=== PATIENT | female | born 1970 | race Caucasian/White ===

== ENCOUNTER 2016-12-07 08:26 | Emergency (ER) | payer OTHER ==
[~2016-12-07] VITALS: Ht 165.1 cm; Wt 104.3 kg
[2016-12-07] MEDS ORDERED: ASPIRIN 81 MG CHEW TABLET PO ONE (09:15)
--- NOTE | 2016-12-07 09:45 | REP ---
Clinical: Chest pain . Comparison: 04/06/2014 . Findings: The mediastinum and cardiac silhouette are stable and within normal limits for portable technique. The lung murillo are clear without acute consolidation, effusion, or pneumothorax. Skeletal structures are intact. Impression: Normal portable chest x-ray Signed by Amandeep Pena MD 12/07/2016 09:36 A
[2016-12-07 10:06] LABS: BASO % 0.3 % (0.0-1.0); EOS # 0.3 K/mm3 (0.0-0.50); EOS % 2.1 % (0.0-3.0); LARGE UNSTAINED CELL # 0.2 K/mm3 (0.0-0.4); LARGE UNSTAINED CELL % 1.4 % (0.0-4.0); LYMPH # 3.6 K/mm3 (1.5-4.5); LYMPH % 28.4 % (24.0-44.0); MEAN CORPUSCULAR HEMOGLOBIN 33.7 pg (27.0-33.0); MEAN CORPUSCULAR HGB CONC 34.4 g/dl (32.0-36.5); MONO # 0.6 K/mm3 (0.0-0.8); MONO % 4.8 % (0.0-5.0); NEUTROPHILS # 7.6 K/mm3 (1.8-7.7); PLATELET COUNT, AUTOMATED 295 k/mm3 (150-450); RED CELL DISTRIBUTION WIDTH 12.4 % (11.5-14.5)
[2016-12-07] MEDS ORDERED: LORazepam 2 MG/ML VIAL (J2060) IV STA (10:13)
[2016-12-07 10:15] LABS: ALBUMIN 3.5 GM/DL (3.2-5.2); ALBUMIN/GLOBULIN RATIO 0.85 (1.00-1.93); ALKALINE PHOSPHATASE 96 U/L (45-117); ALT/SGPT 23 U/L (12-78); ANION GAP 10 MEQ/L (8-16); AST/SGOT 14 U/L (15-37); BILIRUBIN,DIRECT < 0.1 MG/DL (0.0-0.2); BILIRUBIN,TOTAL 0.5 MG/DL (0.2-1.0); BLOOD UREA NITROGEN 11 MG/DL (7-18); CALCIUM LEVEL 8.7 MG/DL (8.5-10.1); CARBON DIOXIDE LEVEL 24 MEQ/L (21-32); CHLORIDE LEVEL 104 MEQ/L (98-107); CREATININE FOR GFR 0.84 MG/DL (0.55-1.02); GLOMERULAR FILTRATION RATE > 60.0 (>58); GLUCOSE, FASTING 121 MG/DL (70-105); POTASSIUM SERUM 3.9 MEQ/L (3.5-5.1); SODIUM LEVEL 138 MEQ/L (136-145); TOTAL PROTEIN 7.6 GM/DL (6.4-8.2)
[2016-12-07] MEDS ORDERED: IPRATROPIUM 0.5MG/ALBUTEROL 2.5MG INH SOL UD 3ML (DUONEB)(J7620) NEB ONE (10:30)
[2016-12-07 14:34] VITALS: BP 154/78
--- NOTE | 2016-12-08 20:39 | ECGEPIP ---
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
--- NOTE | 2016-12-08 20:42 | ECGEPIP ---
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
--- NOTE | 2016-12-08 20:51 | ECGEPIP ---
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
== END 2016-12-07 14:44 | disposition home or self-care (01) ==
LOC: M ED 09:28
DX: J20.9 Acute bronchitis, unspecified (principal); F17.210 Nicotine dependence, cigarettes, uncomplicated
CPT/HCPCS: 71010; 80048; 80076; 82550; 82553; 83690; 84443; 85025; 93005; 93041; 94640; 94760; 96374; 99285; J2060

== ENCOUNTER → 2017-05-16 | Outpatient (REF) | payer OTHER | LOC: M SFHCLERA 15:11 | PROVIDERS: ATTEND Family Medicine | DX: Z13.1 Encounter for screening for diabetes mellitus (principal); Z13.220 Encounter for screening for lipoid disorders; Z53.9 Procedure and treatment not carried out, unspecified reason ==

== ENCOUNTER → 2017-05-19 | Outpatient (REF) | payer OTHER | LOC: M SFHCLERA 11:19 | PROVIDERS: ATTEND Family Medicine | DX: Z13.1 Encounter for screening for diabetes mellitus (principal); Z13.220 Encounter for screening for lipoid disorders ==

== ENCOUNTER → 2017-05-29 | Outpatient (CLI) | payer OTHER ==
--- NOTE | 2017-05-29 16:07 | REP ---
Clinical: Strain. Technique: AP, lateral, flexion/extension, swimmer's, bilateral oblique and open mouth views. Comparison: 07/18/2006. Findings: Moderate multilevel degenerative disc osteophyte complex primarily involving the C4-5, C5-6, C6-7 levels. Findings include marginal osteophytes, endplate sclerosis and disc space narrowing. Alignment and lordosis maintained. No acute fracture / compression injury or subluxation. Oblique views demonstrate suspected facet arthropathy at the C4-5 and C5-6 levels. Open mouth view demonstrates normal C1-C2 articulation and odontoid process. Impression: Moderate multilevel degenerative changes. Signed by Amandeep Pena MD 05/29/2017 03:59 P
== END ==
LOC: M LRY 14:38
PROVIDERS: ATTEND Family Medicine
DX: M50.021 Cervical disc disorder at C4-C5 level with myelopathy (principal); M50.022 Cervical disc disorder at C5-C6 level with myelopathy; M50.023 Cervical disc disorder at C6-C7 level with myelopathy

== ENCOUNTER → 2017-06-05 | Outpatient (CLI) | payer OTHER ==
--- NOTE | 2017-06-05 10:53 | REPMRS ---
Patient History The patient states she has not had a clinical breast exam in over a year. The patient states she has not had a clinical breast exam in over a year. No known family history of cancer. Digital Mammo Screening Bilat: June 05, 2017 - Exam #: [id number] Bilateral CC and MLO view(s) were taken. Technologists: Maria R Bee, Technologist; Indra Rae, Technologist FINDINGS: There are scattered fibroglandular densities. There is no evidence of cancer on this mammogram. ASSESSMENT: BI-RADS/ACR category 2 mammogram. Benign finding(s). Recommendation Routine screening mammogram of both breasts in 1 year (for women over age 40). This mammogram was interpreted with the aid of an FDA-approved computer-aided dectection system. Electronically Signed By: oJhn Garcia MD 06/05/17 [id number]
== END ==
LOC: M RAD 10:23
PROVIDERS: ATTEND Family Medicine
DX: Z12.31 Encounter for screening mammogram for malignant neoplasm of breast (principal)

== ENCOUNTER → 2021-02-28 | Outpatient (CLI) | payer SELFPAY | LOC: M LABSMTC 11:49 | PROVIDERS: ATTEND Pediatrics | DX: Z11.52 Encounter for screening for COVID-19 (principal) ==

== ENCOUNTER → 2022-01-03 | Outpatient (CLI) | payer OTHER | LOC: M PLAIMG 12:24 | PROVIDERS: ATTEND Physician Assistant | DX: M54.50 Low back pain, unspecified (principal) ==

== ENCOUNTER 2023-01-13 13:44 | Emergency (ER) | payer MEDICAID, OTHER, SELFPAY ==
[~2023-01-13] VITALS: Ht 165.1 cm; Wt 111.4 kg
[2023-01-13 14:33] LABS: HEMATOCRIT 45.5 % (36.0-47.0); HEMOGLOBIN 15.6 g/dl (12.0-15.5); MEAN CORPUSCULAR HEMOGLOBIN 33.1 pg (27.0-33.0); MEAN CORPUSCULAR HGB CONC 34.3 g/dl (32.0-36.5); MEAN CORPUSCULAR VOLUME 96.4 fl (80.0-96.0); PLATELET COUNT, AUTOMATED 386 10^3/uL (150-450); RED BLOOD COUNT 4.72 10^6/uL (4.00-5.40); WHITE BLOOD COUNT 13.8 10^3/uL (4.0-10.0)
[2023-01-13 14:43] LABS: INR 0.96
[2023-01-13] MEDS ORDERED: NS 1,000 ML IV ONE (14:45)
[2023-01-13] MEDS ORDERED: KETOROLAC 30 MG/ML 1ML VIAL IV ONE (14:45)
[2023-01-13 15:01] LABS: CK-MB VALUE MASS 2.4 NG/ML (<3.6)
[2023-01-13 15:02] LABS: BLOOD UREA NITROGEN 11 MG/DL (9-23); CALCIUM LEVEL 8.6 MG/DL (8.5-10.1); CARBON DIOXIDE LEVEL 27 MMOL/L (20-31); CHLORIDE LEVEL 107 MMOL/L (98-107); CREATININE FOR GFR 0.89 MG/DL (0.55-1.30); GLOMERULAR FILTRATION RATE > 60.0 (>51); GLUCOSE, FASTING 105 MG/DL (60-100); POTASSIUM SERUM 4.2 MMOL/L (3.5-5.1); SODIUM LEVEL 139 MMOL/L (136-145)
[2023-01-13 15:04] LABS: CPK CREATINE PHOSPHOKINASE 147 U/L (34-145); MB/CK RELATIVE INDEX 1.63 (< OR =4)
[2023-01-13] MEDS ORDERED: ASPIRIN 81MG CHEW TABLET PO ONE (15:15)
[2023-01-13 15:30] LABS: ATYPICAL LYMPH 9 % (0-5); EOSINOPHILS 1 % (0-3); LYMPHOCYTES 28 % (16-44); MONOCYTES 5 % (0-5); NEUTROPHILS 57 % (28-66); PLATELET ESTIMATE NORMAL (NORMAL)
[2023-01-13 15:53] LABS: MB/CK RELATIVE INDEX 1.49 (< OR =4)
[2023-01-13] MEDS ORDERED: ISOVUE-370 76% 100ML VIAL As Ordered ONE (16:25)
[2023-01-13] MEDS ORDERED: HEPARIN DRIP 25,000 UNITS in IV 1 EA IV SCH (16:45)
[2023-01-13 17:40] VITALS: BP 177/91
[2023-01-13 18:27] LABS: RSV AMPLIFICATION NEGATIVE (NEGATIVE)
== END 2023-01-13 17:52 | disposition short-term general hospital (02) ==
LOC: M ED 13:44
DX: I21.4 Non-ST elevation (NSTEMI) myocardial infarction (principal); F17.200 Nicotine dependence, unspecified, uncomplicated
CPT/HCPCS: 36415; 71045; 71275; 72125; 80048; 82550; 82553; 85025; 85610; 85730; 87631; 93005; 93041; 94760; 96365; 96375; 99285; J1885; Q9967

== ENCOUNTER → 2023-09-15 | Outpatient (CLI) | payer OTHER | LOC: M WHC 14:26 | PROVIDERS: ATTEND Family Medicine Addiction Medicine | DX: Z12.31 Encounter for screening mammogram for malignant neoplasm of breast (principal) ==

== ENCOUNTER → 2024-02-16 | Outpatient (CLI) | payer OTHER | LOC: M RAD 14:30 | PROVIDERS: ATTEND Internal Medicine Pulmonary Disease | DX: Z87.891 Personal history of nicotine dependence (principal) ==

== ENCOUNTER → 2024-03-20 | Outpatient (CLI) | payer OTHER | LOC: M WHC 06:59 | PROVIDERS: ATTEND Internal Medicine Gastroenterology | DX: R79.89 Other specified abnormal findings of blood chemistry (principal) ==

== ENCOUNTER → 2024-08-13 | Outpatient (CLI) | payer OTHER ==
[~2024-08-13] MED LIST: PROHANCE 279.3MG/ML 15ML VIAL As Ordered ONE; PROHANCE 279.3MG/ML 5ML VIAL As Ordered ONE
== END ==
LOC: M RAD 12:30
PROVIDERS: ATTEND Internal Medicine Gastroenterology
DX: R79.89 Other specified abnormal findings of blood chemistry (principal); R76.8 Other specified abnormal immunological findings in serum
CPT/HCPCS: 74183; A9576

== ENCOUNTER → 2025-03-24 | Outpatient (CLI) | payer OTHER | LOC: M RAD 16:43 | PROVIDERS: ATTEND Internal Medicine Pulmonary Disease | DX: J43.9 Emphysema, unspecified (principal); J98.11 Atelectasis; R91.8 Other nonspecific abnormal finding of lung field; F17.218 Nicotine dependence, cigarettes, with other nicotine-induced disorders ==

== ENCOUNTER → 2025-05-29 | Outpatient (REF) | payer OTHER ==
[2025-05-29 13:31] LABS: ALT/SGPT 31.0 U/L (7.0-40); AST/SGOT 25.0 U/L (<34); CALCIUM LEVEL 9.2 MG/DL (8.5-10.1); CARBON DIOXIDE LEVEL 23.0 MMOL/L (20-31); CHLORIDE LEVEL 110.0 MMOL/L (98-107); CHOLESTEROL LEVEL 136.0 MG/DL (<200); CHOLESTEROL RISK RATIO 2.39 (<5); CREATININE FOR GFR 0.82 MG/DL (0.55-1.30); GLOMERULAR FILTRATION RATE 84.4 (>51); LDL CHOLESTEROL 38.9 MG/DL (<100); NON-HDL-C 79.1 MG/DL; POTASSIUM SERUM 4.5 MMOL/L (3.5-5.1); SODIUM LEVEL 142.0 MMOL/L (136-145); TRIGLYCERIDES LEVEL 201.0 MG/DL (<150)
== END ==
LOC: M LAB REF 12:10
PROVIDERS: ATTEND Family Medicine Addiction Medicine
DX: E78.5 Hyperlipidemia, unspecified (principal)